=== PATIENT | female | born 1965 | race Two or more races ===

== ENCOUNTER 2017-05-17 18:19 | Emergency (ER) | payer OTHER ==
[~2017-05-17] VITALS: Ht 154.9 cm; Wt 131.5 kg
[2017-05-17 18:31] VITALS: Ht 154.9 cm; Wt 131.5 kg
[2017-05-17 21:03] VITALS: BP 168/88
== END 2017-05-17 21:03 | disposition home or self-care (01) ==
LOC: ED 18:19
DX: J30.9 Allergic rhinitis, unspecified (principal); I10 Essential (primary) hypertension
CPT/HCPCS: J7512; J7613

== ENCOUNTER 2017-09-17 16:48 | Emergency (ER) | payer OTHER ==
[~2017-09-17] VITALS: Ht 154.9 cm; Wt 127.0 kg
[2017-09-17 17:29] VITALS: Ht 154.9 cm; Wt 127.0 kg
[2017-09-17 20:33] VITALS: BP 165/94
== END 2017-09-17 20:33 | disposition home or self-care (01) ==
LOC: ED 16:48
DX: S39.012A Strain of muscle, fascia and tendon of lower back, initial encounter (principal); I10 Essential (primary) hypertension; Z90.09 Acquired absence of other part of head and neck; Z90.49 Acquired absence of other specified parts of digestive tract; X50.0XXA Overexertion from strenuous movement or load, initial encounter; Y93.89 Activity, other specified; Y92.89 Other specified places as the place of occurrence of the external cause; Y99.8 Other external cause status
CPT/HCPCS: J1885; J3010

== ENCOUNTER 2018-05-22 14:10 | Emergency (ER) | payer OTHER ==
[~2018-05-22] VITALS: Ht 154.9 cm; Wt 141.1 kg
[2018-05-22 14:31] VITALS: Ht 154.9 cm; Wt 141.1 kg
[2018-05-22 16:44] VITALS: BP 143/80
== END 2018-05-22 16:44 | disposition home or self-care (01) ==
LOC: ED 14:10
DX: J32.9 Chronic sinusitis, unspecified (principal); I10 Essential (primary) hypertension; V48.6XXA Car passenger injured in noncollision transport accident in traffic accident, initial encounter; Y93.89 Activity, other specified; Y92.488 Other paved roadways as the place of occurrence of the external cause; Y99.8 Other external cause status
CPT/HCPCS: J1885

== ENCOUNTER 2018-07-22 19:11 | Emergency (ER) | payer OTHER ==
[~2018-07-22] VITALS: Ht 154.9 cm; Wt 142.9 kg
[2018-07-22 19:21] VITALS: Ht 154.9 cm; Wt 142.9 kg
[2018-07-22 21:58] LABS: BASOPHIL % 0.4 % (0-2); PLATELET COUNT 428 x10^3mcL (130-400); RED CELL DISTRIBUTION WIDTH 18.5 % (11.5-14.5)
[2018-07-22 22:04] LABS: CALCIUM 8.4 mg/dL (8.5-10.1); CARBON DIOXIDE 26.8 mmol/L (21-32); CHLORIDE SERUM 101 mmol/L (98-107); CREATININE SERUM 0.8 mg/dL (0.6-1.0); GFR1 > 60 mL/min; GLUCOSE SERUM 143 mg/dL (74-106); SODIUM SERUM 136 mmol/L (136-145)
[2018-07-22 22:08] LABS: ALBUMIN 3.5 g/dL (3.4-5.0); ALKALINE PHOSPHATASE 125 U/L (46-116); ALT/SGPT 30 U/L (14-59); AST/SGOT 17 U/L (15-37); BILIRUBIN TOTAL 0.3 mg/dL (0.20-1.00); TOTAL PROTEIN, SERUM 8.3 g/dL (6.4-8.2)
[2018-07-23 01:40] VITALS: BP 130/72
== END 2018-07-23 01:40 | disposition home or self-care (01) ==
LOC: ED 19:11
PROVIDERS: Specialist
DX: N93.9 Abnormal uterine and vaginal bleeding, unspecified (principal); R10.2 Pelvic and perineal pain; D72.829 Elevated white blood cell count, unspecified; D25.9 Leiomyoma of uterus, unspecified; D64.9 Anemia, unspecified; I10 Essential (primary) hypertension; Z90.49 Acquired absence of other specified parts of digestive tract; Z90.89 Acquired absence of other organs; Z98.84 Bariatric surgery status
CPT/HCPCS: 36415; J1885; J3010

== ENCOUNTER 2018-10-22 13:02 | Emergency (ER) | payer OTHER ==
[~2018-10-22] VITALS: Ht 154.9 cm; Wt 143.3 kg
[2018-10-22 13:09] VITALS: Ht 154.9 cm; Wt 143.3 kg
[2018-10-22 15:07] LABS: CALCIUM 8.1 mg/dL (8.5-10.1); CARBON DIOXIDE 28.9 mmol/L (21-32); CHLORIDE SERUM 102 mmol/L (98-107); CREATININE SERUM 0.8 mg/dL (0.6-1.0); GFR1 > 60 mL/min; GLUCOSE SERUM 202 mg/dL (74-106); POTASSIUM SERUM 3.9 mmol/L (3.5-5.1); SODIUM SERUM 138 mmol/L (136-145)
[2018-10-22 15:11] LABS: BASOPHIL % 0.1 % (0-2); PLATELET COUNT 383 x10^3mcL (130-400)
[2018-10-22 15:13] LABS: ALBUMIN 3.2 g/dL (3.4-5.0); ALKALINE PHOSPHATASE 102 U/L (46-116); ALT/SGPT 38 U/L (14-59); AST/SGOT 21 U/L (15-37); BILIRUBIN TOTAL 0.29 mg/dL (0.20-1.00); TOTAL PROTEIN, SERUM 7.8 g/dL (6.4-8.2)
[2018-10-22 15:15] LABS: RED CELL DISTRIBUTION WIDTH 17.8 % (11.5-14.5)
[2018-10-22 15:40] VITALS: BP 157/77
== END 2018-10-22 16:26 | disposition home or self-care (01) ==
LOC: ED 13:02
PROVIDERS: Emergency Medicine
DX: R07.81 Pleurodynia (principal); R06.02 Shortness of breath; I10 Essential (primary) hypertension; Z90.49 Acquired absence of other specified parts of digestive tract; Z90.89 Acquired absence of other organs
CPT/HCPCS: 36415; 85378; Q0092

== ENCOUNTER 2019-05-13 14:41 | Emergency (ER) | payer OTHER ==
[~2019-05-13] VITALS: Ht 154.9 cm; Wt 137.9 kg
[2019-05-13 14:53] VITALS: Ht 154.9 cm; Wt 137.9 kg
[2019-05-13 17:50] VITALS: BP 150/71
== END 2019-05-13 17:50 | disposition home or self-care (01) ==
LOC: ED 14:41
DX: J40 Bronchitis, not specified as acute or chronic (principal); I10 Essential (primary) hypertension; Z98.890 Other specified postprocedural states; Z90.49 Acquired absence of other specified parts of digestive tract